=== PATIENT | female | born 1995 | race Caucasian/White ===

== ENCOUNTER 2018-08-29 09:29 | Outpatient (CLI) | payer OTHER ==
[2018-08-29 11:02] LABS: HGB - HEMOGLOBIN 13.5 g/dL (12.0-16.0); MEAN CORPUSCULAR HEMOGLOBIN 31.1 pg (27.0-31.0); MEAN CORPUSCULAR HGB CONC 35.5 g/dL (32.0-36.0); MEAN CORPUSCULAR VOLUME 87.6 fL (81.0-99.0); MEAN PLATELET VOLUME 7.4 fL (7.9-10.8); RED BLOOD COUNT 4.32 10^6/uL (4.20-5.40); RED CELL DISTRIBUTION WIDTH 12.3 % (12.0-15.0); WHITE BLOOD COUNT 7.2 x10^3/uL (4.8-10.8)
== END 2018-08-29 09:30 | disposition home or self-care (01) ==
LOC: LAB 09:29
PROVIDERS: ATTEND Registered Nurse
DX: Z33.1 Pregnant state, incidental (principal)
CPT/HCPCS: 36415; 82950; 85027; 86850

== ENCOUNTER 2018-10-28 15:56 | Outpatient (CLI) | payer OTHER ==
[2018-10-29 12:13] LABS: HIV AG/AB 4TH GEN NON-REACTIVE (NON-REACTIVE)
[2018-10-29 14:36] LABS: HEPATITIS C ANTIBODY NON-REACTIVE (NON-REACTIVE)
== END 2018-10-28 15:57 | disposition home or self-care (01) ==
LOC: LAB 15:56
PROVIDERS: ATTEND Registered Nurse
DX: Z34.90 Encounter for supervision of normal pregnancy, unspecified, unspecified trimester (principal)
CPT/HCPCS: 36415; 81599; 86592; 86803; 87389

== ENCOUNTER 2018-10-29 15:45 | Outpatient (CLI) | payer OTHER | END 2018-10-29 23:59 | disposition home or self-care (01) | LOC: LAB.R 15:45 | PROVIDERS: ATTEND Registered Nurse | DX: Z34.90 Encounter for supervision of normal pregnancy, unspecified, unspecified trimester (principal) | CPT/HCPCS: 87491; 87591; 87797 ==

== ENCOUNTER 2018-11-20 03:36 | Outpatient (CLI) | payer OTHER ==
[2018-11-20 04:11] VITALS: BP 131/68
== END 2018-11-20 05:32 | disposition home or self-care (01) ==
LOC: WFO 03:36 → FBP 03:38 → WFO 05:32
PROVIDERS: ATTEND Nurse Practitioner Obstetrics & Gynecology
DX: Z34.03 Encounter for supervision of normal first pregnancy, third trimester (principal)

== ENCOUNTER 2018-11-20 11:36 | Inpatient (IN) | payer OTHER ==
[2018-11-20] MEDS ORDERED: ONDANSETRON ODT 4 MG TABLET TL PRN (12:23)
[2018-11-20] MEDS ORDERED: PENICILLIN G POTASSIUM 5,000,000 UNIT in SODIUM CHLORIDE 0.9% MINIBAG 100 ML IV ONE (12:26)
[2018-11-20] MEDS ORDERED: SODIUM CHLORIDE FLUSH 0.9% 10 ML SYRINGE IVP PRN (12:26)
[2018-11-20] MEDS ORDERED: ONDANSETRON 4 MG/2 ML VIAL IVP PRN (12:26)
--- NOTE | 2018-11-20 12:35 | HISTORY & PHYSICAL EXAMINATION ---
Admit History - Visit Reason Visit Reason: Contractions - : 1 Parity: 0 Premature: 0 Ectopic: 0 : 0 Care: positive: [facility] Risk/History: positive: None Complications This : positive: None Smoking Status: Former smoker - Mother's Labs Mother's Blood Type: positive: A Mother's RH: positive: Positive GBS: positive: Group B Strep Positive Rubella Status: positive: Immune Review of Systems - Constitutional Constitutional: denies: Fatigue, Fever - Eyes Eyes: denies: Blurred vision, Spots in vision, Dipolpia - Cardiovascular Cariovascular: denies: Irregular heart rate, Palpitations, Chest pain, Edema, Lightheadedness - Respiratory Respiratory: denies: SOB at rest - Gastrointestinal Gastrointestinal: reports: Nausea, Vomiting. denies: Abdominal pain, Constipation, Diarrhea - Neurological Neurological: denies: Headache, Dizziness - Psychiatric Psychiatric: denies: Depression, Anxiety Physical - Abdominal Exam Vital Signs: Temp Pulse Resp BP Pulse Ox 36.9 C 60 14 139/69 H 11/20/18 11:45 11/20/18 11:45 11/20/18 11:45 11/20/18 11:45 Contraction Frequency (min/apart): 4-5 Contraction Intensity: positive: Moderate Uterine Resting Tone: positive: Soft - Monitoring Heart Rate Baseline: 130 Strip Review: positive: Category I - Presentation Presentation: positive: Vertex - Vaginal Exam Membranes: positive: Membranes intact Dilation (in cm): 5 Effacement (%): 80 Station: positive: -1 Cervical Position: positive: Midposition - Speculum Exam Speculum Exam Performed: positive: No Plan for Labor - Plan For Labor I expect patient to be DC'd or transferred within 96 hours.: Yes Plan for Labor: HPI: This 23yo @ 39.1wks gestation by LMP. She presents to [facility] with c/o contractions. She denies VB or Lof. She reports +FM. She has been feeling nauseous with vomiting. Her has been uncomplicated with the exception of testing positive for group B strep at 36wks gestation. She was admitted to [facility] for expectant management. Cervix was 5/80/-1, midposition, and vertex with intact membranes upon her arrival. Dating criteria: LMP: First trimester U/S agrees. Serial exams - agree PMHx: none. [employer] Hx: No STD hx. Last pap 2013 WNL, no hx abnormal pap Genetic hx: maternal -neg, FOB - neg Surgical Hx: [place] teeth removal Social Hx: former smoker - quit 2017, no ETOH or IVDA. Sarthak supportive. No environmental exposures. Tdap vaccine: 09/16/2018 Physical Exam: Normocephalic, atraumatic Heart RRR w/o M/G/R Lungs CTAB Abdomen gravid, soft and nontender. EFW 3100g SVE 5/80/-1, vertex, midposition, soft. BOWI Bilateral LE's no edema Assessment: 23yo @ 39.1wks gestation by LMP GBS positive Amniotic membranes intact Nausea with vomiting Plan: Admit for expectant managment Aundrea per patient request Intermittent auscultation per protocol Initiate penicillin for GBS prophylaxis per protocol Consider AROM if no cervical change following loading dose of Penicillin Ambulation and position encouraged. Reviewed plan of care with and patient who are in agreement. Labor RN present and agrees. No further questions or concerns at this time.
[2018-11-20] MEDS ORDERED: LACTATED RINGERS 1,000 ML IV ONE (12:42)
[2018-11-20] MEDS ORDERED: PENICILLIN G POTASSIUM 2,500,000 UNIT in SODIUM CHLORIDE 0.9% 100ML 100 ML IV SCH (13:00)
[2018-11-20] MEDS ORDERED: LACTATED RINGERS 1,000 ML IV SCH (13:00)
[2018-11-20] MEDS ORDERED: AMPICILLIN 2 GM in SODIUM CHLORIDE 0.9% MINIBAG 100 ML IV ONE (13:00)
[2018-11-20 13:16] LABS: BASOPHILS % (AUTO) 0.3 %; EOSINOPHILS % (AUTO) 0.1 %; HGB - HEMOGLOBIN 13.4 g/dL (12.0-16.0); LYMPHOCYTES # (AUTO) 1.3 10^3/uL (1.5-3.5); LYMPHOCYTES % (AUTO) 9.5 %; MEAN CORPUSCULAR HEMOGLOBIN 29.6 pg (27.0-31.0); MEAN CORPUSCULAR HGB CONC 34.5 g/dL (32.0-36.0); MEAN CORPUSCULAR VOLUME 85.7 fL (81.0-99.0); MONOCYTES # (AUTO) 0.8 10^3/uL (0.0-1.0); MONOCYTES % (AUTO) 5.8 %; NEUTROPHILS # (AUTO) 11.4 10^3/uL (1.5-6.6); NEUTROPHILS % (AUTO) 84.3 %; PLT - PLATELET COUNT 196 10^3/uL (130-450); RED BLOOD COUNT 4.54 10^6/uL (4.20-5.40); RED CELL DISTRIBUTION WIDTH 12.2 % (12.0-15.0); WHITE BLOOD COUNT 13.5 x10^3/uL (4.8-10.8)
[2018-11-20] MEDS ORDERED: OXYTOCIN/SODIUM CHLORIDE 500 ML IV PRN (14:53)
--- NOTE | 2018-11-20 15:01 | DELIVERY NOTE ---
Delivery Note - Labor Labor: positive: Spontaneous - Delivery Method Delivery Method: positive: Spontaneous vaginal delivery - Presentation Presentation: positive: Vertex, Compound, HILARY - right occiput anterior - Nuchal Cord Nuchal Cord: positive: Present - Episiotomy Type Episiotomy Type: positive: None - Laceration Laceration: positive: None - Delivery Outcome Delivery Outcome: positive: Livebirth - [place]: positive: Placed in direct skin contact with mother, Bulb syringe, Stimulated, Warmed, [place] used - Cord Cord: positive: 3 vessels - Placenta Placenta: positive: Intact, Spontaneous - Estimated Blood Loss Estimated Blood Loss (in cc): 100 - Post Delivery Events Post Delivery Events: positive: No post delivery events - Delivery Comments (Free Text/Narrative) Delivery Comments (Free Text/Narrative): This 23yo @ 39.1wks gestation by LMP presented at 1130 on 11/20/2018 in early labor. Cervix was 5/80/-1, vertex. FHR pattern demonstrated baseline 130s in a Category I pattern throughout. Normal labor course. She received 2gm Ampicillin for GBS prophylaxis. She progressed to c/c/+2 with spontaneous urge to push at 1350 and AROM was performed and was noted to be a small amount of clear fluid. She spontaneously delivered a viable female on 11/20/2018 @ 1437. Compound left hand and tight nuchal cord. somersaulted through cord which was noted to be wrapped under 's left axilla. The was placed on maternal abdomen, stimulated, dried, and placed skin to skin. Apgars 8/9 at 1 and 5 min respectively. The umbilical cord was allowed to stop pulsating at which time it was clamped by CNM and cut by FOB. Cord blood was obtained. Placenta delivered spontaneously and intact at 1440. 3VC. Pitocin administered via IV for hemostasis. EBL 100mL. Uterine fundus firm and there is no excessive bleeding. The perineum, vagina, and cervix were inspected and found to be intact. Family bonding well. Both mother and baby were left in stable condition in skin to skin position.
[2018-11-20] MEDS: ACETAMINOPHEN 500 MG TABLET PO SCH (16:47)
[2018-11-20] MEDS: IBUPROFEN 800 MG TABLET PO SCH (16:47)
[2018-11-20] MEDS ORDERED: AMPICILLIN 1 GM in SODIUM CHLORIDE 0.9% MINIBAG 100 ML IV SCH (17:00)
[2018-11-20] MEDS ORDERED: SODIUM CHLORIDE FLUSH 0.9% 10 ML SYRINGE IVP SCH (17:00)
[2018-11-21] MEDS: ACETAMINOPHEN 500 MG TABLET PO SCH ×3 (02:21→19:41)
[2018-11-21] MEDS: IBUPROFEN 800 MG TABLET PO SCH ×3 (02:21→17:26)
--- NOTE | 2018-11-21 07:33 | PROVIDER PROGRESS NOTE ---
Subjective - Subjective Subjective: S: Bonding well with baby. without difficulty. Denies pain or tenderness of nipples. Bleeding decreased and is light. Denies pain at perineum. supportive at the bedside. O: BP 109/57, HR 65, T 36.6, RR 16 Heart RRR w/o M/G/R, lungs CTAB, abdomen soft and nontender with fundus firm at U-1. Bilateral LE's no edema. A: 23yo -->P1 PPD#1 s/p TSVD of viable female infant perineum intact P: Continue routine pp care and medications. Continue to work with today - doing well. Reevaluate for discharge home tomorrow. Objective - Vital Signs/Intake & Output Vital Signs: Vital Signs x48h Temp Pulse Resp BP Pulse Ox 11/21/18 06:50 36.6 C 65 16 109/57 L 98 11/21/18 01:37 36.6 C 69 16 107/63 99 Intake & Output: Intake & Output 11/18/18 11/19/18 11/20/18 11/21/18 23:59 23:59 23:59 23:59 Intake Total 1100 Output Total 875 Balance 225 - Lab Results Fish Bones: 11/20/18 12:56 Other Labs: Lab Results x24hrs 11/20/18 Range/Units 12:56 WBC 13.5 H (4.8-10.8) x10^3/uL RBC 4.54 (4.20-5.40) 10^6/uL Hgb 13.4 (12.0-16.0) g/dL Hct 39.0 (37.0-47.0) % MCV 85.7 (81.0-99.0) fL MCH 29.6 (27.0-31.0) pg MCHC 34.5 (32.0-36.0) g/dL RDW 12.2 (12.0-15.0) % Plt Count 196 (130-450) 10^3/uL MPV 9.0 (7.9-10.8) fL Neut # (Auto) 11.4 H (1.5-6.6) 10^3/uL Lymph # (Auto) 1.3 L (1.5-3.5) 10^3/uL [place] # (Auto) 0.8 (0.0-1.0) 10^3/uL Eos # (Auto) 0.0 (0.0-0.7) 10^3/uL Baso # (Auto) 0.0 (0.0-0.1) 10^3/uL Absolute Nucleated RBC 0.00 x10^3/uL Nucleated RBC % 0.0 /100WBC
--- NOTE | 2018-11-21 17:40 | HISTORY & PHYSICAL EXAMINATION ---
Admit History - Smoking Status: Former smoker Meds/Allgy - Allergies Allergies/Adverse Reactions: Allergies Allergy/AdvReac Type Severity Reaction Status Date / Time No Known Drug Allergies Allergy Verified 11/20/18 13:19 Physical - Abdominal Exam Vital Signs: Temp Pulse Resp BP Pulse Ox 36.9 C 56 L 15 110/54 L 99 11/21/18 15:20 11/21/18 15:20 11/21/18 15:20 11/21/18 15:20 11/21/18 15:20
[2018-11-22] MEDS: IBUPROFEN 800 MG TABLET PO SCH (01:25)
[2018-11-22] MEDS: ACETAMINOPHEN 500 MG TABLET PO SCH ×2 (04:40→13:14)
--- NOTE | 2018-11-22 08:15 | Discharge Plan ---
Discharge Plan Disposition: 01 Home, Self Care Condition: Good Diet: Regular Activity Restrictions: No Restrictions Shower Restrictions: No Driving Restrictions: No Weight Bearing: Full Weight No Smoking: If you smoke, Please STOP! Call for help. Follow-up with: Georgette Prince CNM, ARNP [Provider Admit Priv/Credential] -
--- NOTE | 2018-11-22 08:19 | PROVIDER PROGRESS NOTE ---
Subjective - Subjective Subjective: FINAL PROGRESS NOTE: S: Bonding well with baby. without difficulty and she denies nipple pain or discomfort. Bleeding decreased and is light. She denies pain and any discomforts have remained well controlled with oral medications. Mood is good and they are anxious to go home today. O: Heart RRR w/o M/G/R, lungs CTAB, abdomen soft and nontender with fundus firm at U-3, Bilateral LE's no edema. A: 23yo -->P1 PPD#2 s/p TSVD of viable female infant P: Discharge home today on PPD#2. Reviewed self care and warning s/sx. Advised continuation of PNV while . OTC ibuprofen and tylenol for pain management. Planning condoms for contraception pp - does not do well with hormonal contraception and previous experience with IUD resulted in recurrent vaginitis. F/u in 1 week for support visit and in 3 weeks for routine pp visit. Pt and verbalized understanding and agree to above plan. They deny further questions or concerns at this time. Objective - Vital Signs/Intake & Output Vital Signs: Vital Signs x48h Temp Pulse Resp BP Pulse Ox 11/22/18 04:38 36.7 C 61 16 120/53 L 100 11/22/18 01:34 36.6 C 62 16 118/66 98 Intake & Output: Intake & Output 11/19/18 11/20/18 11/21/18 11/22/18 23:59 23:59 23:59 23:59 Intake Total 1100 Output Total 875 Balance 225 - Lab Results Fish Bones: 11/20/18 12:56
--- NOTE | 2018-11-22 13:10 | DISCHARGE SUMMARY ---
Physician: YURY Bose DATE OF ADMISSION: 11/20/2018 DATE OF DISCHARGE: 11/15/2018 DIAGNOSES ON ADMISSION: 1. A 23-year-old G1, P0, at 39.1 weeks' gestation. 2. Group B streptococcus positive. 3. Early labor. 4. Nausea with vomiting. DIAGNOSES ON DISCHARGE: 1. A 23-year-old G1, P1-0-0-1, status post spontaneous vaginal delivery on 11/20/2018. 2. . 3. Normal recovery. BRIEF HISTORY: Asha is a patient of [facility] who presented on 11/20/2018 with complaints of contractions. Her cervix was noted to be 5 cm dilated, 80% effaced, -1 in vertex posit ion. Normal labor course. She received 2 grams of ampicillin for GBS prophylaxis. She progressed t o spontaneously deliver a viable female on 11/20/2018 at 1437 hours. scores were 8 and 9 at one and five minutes, respectively. EBL 100 mL She has been doing well in her course. She is ambulating and urinating without difficulty and her lochia is normal. She has been advised to continue her vitamin while in addition to taking [id number] Tylenol and ibuprofen for pain management as needed. She miguel l be discharged home today on postoperative day #2. She intends to followup with myself at [facility] in 1 week for support visit, and in 3 weeks for routine visit . She has been given precautions to call if she has any worsening fevers, chills, abdominal pain, in creased bleeding or foul-smelling vaginal lochia. TD: 11/22/2018 08:24
[2018-11-22 14:23] VITALS: BP 126/64
--- NOTE | 2018-11-22 15:58 | Labor Flowsheet ---
Labor Flowsheet Datetime Report Generated by CPN: 11/22/2018 15:58 Datetime: 11/22/2018 12:57 VITAL SIGNS NBP Sys/Gloria/Mean (mmHg): 126 : 64 : 78 Pulse: 56 LaborFlag: Labor Datetime: 11/21/2018 08:59 SpO2 (%): 99 Datetime: 11/20/2018 14:33 ASSESSMENT A Monitor Mode: Doppler Comments: unable Datetime: 11/20/2018 14:28 FHR Baseline Rate : 130 Datetime: 11/20/2018 14:21 PATIENT CARE Patient Position/Activity: Right Lateral Datetime: 11/20/2018 14:15 Decelerations: None Datetime: 11/20/2018 14:11 STAGE 2 Pushing: Coached on Pushing Pushing Position: Pushing Right Side Pushing Progress: Descent with Pushing Datetime: 11/20/2018 14:00 UTERINE ACTIVITY Monitor Mode: Palpation Frequency (min): 3 Quality: Moderate Duration (sec): 40-60 Pattern: Normal: <= 5 Contractions in 10 Minutes Resting Tone (Palpate): Relaxed Datetime: 11/20/2018 13:50 Stage of : Labor VAGINAL EXAM Dilatation (cm): 10.0 Effacement (%): 100 Station: 2 Exam by: Una Aguilarr Membrane Status: Ruptured Membranes Rupture Method: Artificial Amniotic Fluid Color: Clear Amniotic Fluid Amount: Small Amniotic Fluid Odor: Normal COMMUNICATION Communication: RN at Bedside; Provider at Bedside Communication Comments: Juan Jose Suresh at bedside to assess Datetime: 11/20/2018 13:36 FHR Baseline Changes: No Baseline Change
== END 2018-11-22 15:40 | disposition home or self-care (01) | DRG 807 ==
LOC: WFO 11:36 → FBP 11:37 → WFO 12:25 → FBP 12:26
PROVIDERS: ADMIT Nurse Practitioner Obstetrics & Gynecology; ATTEND Nurse Practitioner Obstetrics & Gynecology
PROC: 10E0XZZ Delivery of Products of Conception, External Approach (ICD-10-PCS; principal; 2018-11-20)
PROC: 10907ZC Drainage of Amniotic Fluid, Therapeutic from Products of Conception, Via Natural or Artificial Opening (ICD-10-PCS; 2018-11-20)
DX: O99.824 Streptococcus B carrier state complicating childbirth (principal); Z37.0 Single live birth; O32.6XX0 Maternal care for compound presentation, not applicable or unspecified; O69.1XX0 Labor and delivery complicated by cord around neck, with compression, not applicable or unspecified; Z3A.39 39 weeks gestation of pregnancy; Z87.891 Personal history of nicotine dependence
CPT/HCPCS: 85025; 99212; 99213; A9270; J7120; Q0162

== ENCOUNTER 2018-12-17 08:00 | Outpatient (CLI) | payer OTHER | END 2018-12-17 23:59 | disposition home or self-care (01) | LOC: LAB.R 08:00 | PROVIDERS: ATTEND Nurse Practitioner Obstetrics & Gynecology | DX: R39.11 Hesitancy of micturition (principal) | CPT/HCPCS: 87086 ==